=== PATIENT | male | born 1960 | race Asian ===

== ENCOUNTER 2017-07-24 14:55 | Emergency (ER) | payer OTHER ==
[~2017-07-24] VITALS: Ht 170.2 cm; Wt 85.8 kg
[2017-07-24 15:28] LABS: Urine RBC None Seen /hpf (0 - 3)
[2017-07-24 15:39] LABS: Basophils # (auto) 0 uL; Basophils % (auto) 0.4 % (0.0-2.0); Eosinophils # (auto) 0.4 uL; Eosinophils % (auto) 4.8 % (0.0-7.0); Hematocrit 44.5 % (41.0-53.0); Hemoglobin 15.5 g/dL (13.5-17.5); Lymphocytes # (auto) 2.7 uL; Lymphocytes % (auto) 37.4 % (10.0-50.0); Mean Corpuscular Hemoglobin 33.9 pg (28.0-32.0); Mean Corpuscular Hgb Conc. 34.8 g/dL (32.0-36.0); Mean Corpuscular Volume 97.3 fL (80.0-100.0); Mean Platelet Volume 7.9 fL (6.9-10.8); Monocytes # (auto) 0.6 uL; Monocytes % (auto) 8.5 % (0.0-12.0); Neutrophils # (auto) 3.6 uL; Neutrophils % (auto) 48.9 % (37.0-80.0); Nucleated Red Blood Cells % 0.1 %; Platelet Count (auto) 223 10^3/uL (140-450); Red Cell Distribution Width 13.1 % (11.8-14.3); White Blood Cell 7.3 10^3/uL (4.4-10.8)
[2017-07-24 15:50] LABS: Albumin 4.4 g/dL (3.4-5.0); BUN/Creatinine Ratio 19.6; Calcium 8.8 mg/dL (8.5-10.1); Potassium 3.7 mmol/L (3.5-5.1); Total Protein 7.5 g/dL (6.4-8.2)
[2017-07-24 16:01] LABS: Urine Bilirubin Negative (Negative); Urine Blood Negative /uL (Negative); Urine Color Yellow (Yellow); Urine Glucose Normal (Normal); Urine Ketone Negative (Negative); Urine Nitrite Negative (Negative); Urine Urobilinogen Normal (Negative)
[2017-07-24] MEDS ORDERED: KETOROLAC TROMETH 60MG/2ML VIAL IM ONE (17:30)
[2017-07-24] MEDS ORDERED: cefTRIAXone SOD 1,000 MG VL IM ONE (17:30)
[2017-07-24 17:57] VITALS: BP 135/83
== END 2017-07-24 18:11 | disposition home or self-care (01) ==
LOC: ER 15:13
DX: R51 Headache (principal); H66.93 Otitis media, unspecified, bilateral
CPT/HCPCS: 36415; 70450; 80053; 81001; 84484; 85025; 93005; 96372; 99285; J0696; J1885